=== PATIENT | female | born 1965 | race Caucasian/White ===

== ENCOUNTER 2023-07-03 09:25 | Emergency (ER) | payer SELFPAY ==
[2023-07-03 09:49] VITALS: TEMP 97.9; BMI 25.8
[2023-07-03] MEDS ORDERED: SODIUM CHLORIDE 0.9% 500 ML INFUS.BAG IV ONE (10:49)
[2023-07-03 11:09] LABS: INR 1.05 (0.83-1.09); PROTHROMBIN TIME (PATIENT) 12.2 SEC (9.7-13.0)
[2023-07-03 11:11] LABS: BASO % 2.3 % (0-2.0); EOS % 1.8 % (0-4.5); HEMATOCRIT 44.2 % (32.4-45.2); HEMOGLOBIN 14.6 GM/dL (10.7-15.3); LYMPH % 29.6 % (8-40); MCH 34.7 pg (25.7-33.7); MEAN CELL VOLUME 104.9 fl (80-96); MEAN PLT VOLUME 7.2 fl (7.5-11.1); MONO % 8.1 % (3.8-10.2); NEUT % 58.2 % (42.8-82.8); PLATELET COUNT 360 10^3/uL (134-434); RBC 4.21 M/mm3 (3.60-5.2); RDW 14.8 % (11.6-15.6); WHITE BLOOD COUNT 4.8 K/mm3 (4.0-10.0)
[2023-07-03 11:12] LABS: ACTIVATED PTT 27.8 SECONDS (25.2-36.5)
[2023-07-03 11:15] LABS: PH,URINE 7.5 (5.0-8.0); URINE APPEARANCE CLEAR; URINE BILIRUBIN NEGATIVE (NEGATIVE); URINE COLOR YELLOW; URINE GLUCOSE (UA) NEGATIVE (NEGATIVE); URINE KETONE NEGATIVE (NEGATIVE); URINE LEUK ESTERASE NEGATIVE (NEGATIVE); URINE NITRITE NEGATIVE (NEGATIVE); URINE PROTEIN NEGATIVE (NEGATIVE); URINE UROBILINOGEN 0.2 mg/dL (0.2-1.0)
[2023-07-03 11:18] LABS: POTASSIUM 4.4 mmol/L (3.5-5.1)
[2023-07-03 11:20] LABS: CALCIUM 8.7 mg/dL (8.5-10.1)
[2023-07-03 11:21] LABS: ALBUMIN 3.8 g/dl (3.4-5.0); BLOOD UREA NITROGEN 6.4 mg/dL (7-18); MAGNESIUM 2.3 mg/dL (1.8-2.4)
[2023-07-03 11:24] LABS: CREATININE 0.8 mg/dL (0.55-1.3); PHOSPHOROUS 3.5 mg/dL (2.5-4.9)
[2023-07-03 11:25] LABS: BILIRUBIN,TOTAL 0.3 mg/dL (0.2-1); TOT PROT 7.4 g/dl (6.4-8.2)
[2023-07-03 14:37] VITALS: BP 107/69; PULSE 84; RESP 18
== END 2023-07-03 14:37 | disposition home or self-care (01) ==
LOC: JER 09:25
DX: R07.89 Other chest pain (principal); R06.02 Shortness of breath; Z20.822 Contact with and (suspected) exposure to COVID-19
CPT/HCPCS: 0241U-QW; 36415; 71045-TC-FY; 76705-TC; 80053; 81003; 82962; 83735; 84100; 84484; 85025; 85379; 85610; 85730; 87086; 93005; 93010; 99285-25